=== PATIENT | male | born 1965 | race Caucasian/White ===

== ENCOUNTER 2018-03-08 16:04 | Emergency (ER) | payer OTHER ==
[~2018-03-08] VITALS: Ht 180.3 cm; Wt 85.0 kg
[2018-03-08] MEDS ORDERED: EPIN0.1517 IM (16:06)
[2018-03-08] MEDS ORDERED: CETIRIZINE HCL 10 MG TABLET PO ONE (17:15)
[2018-03-08 18:10] VITALS: BP 113/68
== END 2018-03-08 18:10 | disposition home or self-care (01) ==
LOC: EMS 16:05
DX: T63.441A Toxic effect of venom of bees, accidental (unintentional), initial encounter (principal); Y92.89 Other specified places as the place of occurrence of the external cause; Z79.899 Other long term (current) drug therapy
CPT/HCPCS: 99283